=== PATIENT | female | born 1995 | race Caucasian/White ===

== ENCOUNTER 2017-01-14 17:59 | Emergency (ER) | payer OTHER ==
[2017-01-14 18:36] VITALS: BP 116/74; PULSE 62; TEMP 98; BMI 22.8
--- NOTE | 2017-01-14 19:09 | PDOC ---
History of Present Illness - General History Source: Patient, Family (Mother) Exam Limitations: No Limitations - History of Present Illness Initial Comments: 01/14/17 19:24 The patient is a 22 year old female presenting with her mother, who presents to the emergency department with left armpit pain and left palm numbness. She states that she has had this pain and numbness during the pass month, occurring periodically. She reports that the pain is mild, without radiation or modifying factors. She denies any kind of injury or overuse of the left upper extremity. She describes her numbness as a tingling sensation. She denies any loss of strength or sensation in the left upper extremity. The patient denies chest pain, shortness of breath, headache and dizziness. Denies fever, chills, nausea, vomit, diarrhea and constipation. Denies dysuria, frequency, urgency and hematuria. PAST MEDICAL HISTORY: no significant history PAST SURGICAL HISTORY: no significant history FAMILY HISTORY: no pertinent history SOCIAL HISTORY: Pt lives with family and is employed. MEDICATIONS: reviewed ALLERGIES: As per nursing notes <Ramu Byrd - Last Filed: 01/14/17 19:24> - General History Source: Patient Exam Limitations: No Limitations - History of Present Illness Initial Comments: 01/14/17 19:30 A portion of this note was documented by scribe services under my direction. I have reviewed the details of the note, within reason, and agree with the documentation. The case summary and management plan written by me. Assessment and plan: This is a 22-year-old female who comes in with her mother for evaluation of some discomfort in her left axilla and intermittent numbness in her left hand. Left axilla discomfort has been times one day of the left hand numbness is been intermittent times one month. Patient is otherwise healthy denies any history of smoking, illegal drug use or recent illnesses. Discussed with patient and her mom the importance of follow-up as this is not a emergent workup that needs to be done this evening since symptoms have been going on for more than a month with the numbness. Suspect there may also be an anxiety component to the numbness as mom states patient does have a history of anxiety. Patient does have a primary care doctor she can follow-up with. <Stephanie Guo I - Last Filed: 01/14/17 19:31> - General Chief Complaint: Pain Stated Complaint: LEFT ARMPIT PAIN, LEFT HAND NUMBNESS Time Seen by Provider: 01/14/17 19:06 Past History <Ramu Byrd - Last Filed: 01/14/17 19:24> - Past Medical History Other medical history: DENIES - Psycho/Social/Smoking Cessation Hx Anxiety: No Suicidal Ideation: No Smoking History: Never smoked Hx Alcohol Use: No Drug/Substance Use Hx: No <Stephanie Guo I - Last Filed: 01/14/17 19:31> - Past Medical History Allergies/Adverse Reactions: Allergies Allergy/AdvReac Type Severity Reaction Status Date / Time No Known Allergies Allergy Verified 01/14/17 18:00 Home Medications: Ambulatory Orders NK [No Known Home Medication] 01/14/17 Review of Systems - Review of Systems Able to Perform ROS?: Yes Comments:: 01/14/17 19:24 General: No fevers or chills, no weakness, no weight loss HEENT: No change in vision. No sore throat,. No ear pain CardioVascular: No chest pain or shortness of breath Respiratory:No cough, or wheezing. Gastrointestinal: no nausea, vomiting, diarrhea or constipation, No rectal bleeding Genitourinary: No dysuria, hematuria, or frequency Musculoskeletal: No joint or muscle pain or swelling Extremities: +Left armpit pain and left hand numbness Neurologic: No headache, vertigo, dizziness or loss of consciousness Psychiatric: nor depression Skin: No rashes or easy bruising Endocrine: no increased thirst or abnormal weight change Allergic: no skin or latex allergy All other systems reviewed and normal <Ramu Byrd - Last Filed: 01/14/17 19:24> *Physical Exam - Vital Signs Last Vital Signs Temp Pulse Resp BP Pulse Ox 98 F 62 18 116/74 100 01/14/17 18:00 01/14/17 18:00 01/14/17 18:00 01/14/17 18:00 01/14/17 18:00 - Physical Exam Comments: 01/14/17 19:25 General: Well-nourished well-developed individual, no acute distress HEENT: Throat: Normal, tonsils normal, no erythema or exudate Neck: Supple, no meningeal signs, no lymphadenopathy Eyes::Pupils equal reactive and round, extraocular motion intact Chest: Nontender to palpation Cardiac: S1-S2 normal, regular rate and rhythm, no murmurs rubs or gallops Respiratory: Lungs clear to auscultation bilateral Abdomen: Soft, nondistended, normal bowel sounds, nontender to palpation diffusely Extremities: +1 small left axillary lymphnode slightly tender on palpation. Warm , dry, no cyanosis, clubbing, or edema Skin: No rashes Neuro: Alert and oriented x3, nonfocal exam, grossly intact, normal gait Psych: Normal mood and affect <Ramu Byrd - Last Filed: 01/14/17 19:24> - Vital Signs Last Vital Signs Temp Pulse Resp BP Pulse Ox 98 F 62 18 116/74 100 01/14/17 18:00 01/14/17 18:00 01/14/17 18:00 01/14/17 18:00 01/14/17 18:00 <Stephanie Guo I - Last Filed: 01/14/17 19:31> *DC/Admit/Observation/Transfer - Attestations Scribe Attestion: 01/14/17 19:25 Documentation prepared by Ramu Byrd, acting as medical accounting clerk for Stephanie Guo MD <Ramu Byrd - Last Filed: 01/14/17 19:24> - Discharge Dispostion Admit: No <Stephanie Guo I - Last Filed: 01/14/17 19:31> Diagnosis at time of Disposition: Left axillary pain - Discharge Dispostion Disposition: HOME Condition at time of disposition: Stable - Patient Instructions Additional Instructions: Tylenol or Motrin as needed for pain. Follow-up with your primary care DrAarti next week if you still or experiencing any discomfort or numbness in your hand. Return to the emergency department immediately with ANY new, persistent or worsening symptoms. Continue any medications as previously prescribed by your physician. You should follow up with your primary doctor as soon as possible regarding today's emergency department visit. . Please make sure your doctor reviews the results of your emergency evaluation. Thank you for coming to the Emergency Department today for your care. It was a pleasure to see you today. Please note that your evaluation is INCOMPLETE until you follow-up with your doctor. Addendum entered and electronically signed by Ramu Byrd SCRIBE 19:33: Progress Note - Progress Note Progress Note: ECG 01/14/2017 18:49 Ventricular rate: 72 bpm Normal sinus rhythm, with sinus arrhythmia.
--- NOTE | 2017-01-15 16:08 | EKG ---
Test Reason : Blood Pressure : / mmHG Vent. Rate : 072 BPM Atrial Rate : 072 BPM P-R Int : 138 ms QRS Dur : 084 ms QT Int : 404 ms P-R-T Axes : 051 066 043 degrees QTc Int : 442 ms NORMAL SINUS RHYTHM WITH SINUS ARRHYTHMIA NORMAL ECG NO PREVIOUS ECGS AVAILABLE Confirmed by JAYLEN MORRELL MD ([id number]) on 01/15/2017 4:07:43 PM Referred By: [facility] Confirmed By:JAYLEN MORRELL MD
== END 2017-01-14 19:30 | disposition home or self-care (01) ==
LOC: FER 17:59
DX: M79.622 Pain in left upper arm (principal)
CPT/HCPCS: 93005; 99283-25

== ENCOUNTER 2022-09-25 19:12 | Emergency (ER) | payer OTHER ==
[2022-09-25 19:21] VITALS: BP 127/72; PULSE 71; RESP 16; TEMP 99.2; BMI 23.3
== END 2022-09-25 21:33 | disposition home or self-care (01) ==
LOC: FER 19:12
DX: M79.661 Pain in right lower leg (principal)
CPT/HCPCS: 93971-TC; 99284-25